=== PATIENT | female | born 1940 | race Caucasian/White ===

== ENCOUNTER 2019-08-06 06:54 | Day surgery (SDC) | payer MEDICARE, OTHER ==
[~2019-08-06 06:54] MED LIST: ACETAMINOPHEN 1,000 MG/100 ML BTL IVPB ONE; CEFAZOLIN 2 Gram 2 GM/50 ML BAG IVPB ONE; FAMOTIDINE 20MG TABLET PO ONE; MECLIZINE 25 MG TABLET PO ONE; METOCLOPRAMIDE 10 MG TABLET PO ONE
[2019-08-06] MEDS ORDERED: BUPIVACAINE LIPOSOME/PF 133MG/10ML VIAL IV ONE (06:55)
[2019-08-06] MEDS ORDERED: MIDAZOLAM HCL 2MG/2ML VIAL IV ONE (06:55)
[2019-08-06] MEDS ORDERED: BUPIVACAINE 0.25% MPF 30ML VIAL IVP ONE (06:55)
[2019-08-06] MEDS ORDERED: PROPOFOL 10 MG/ML VIAL IV ONE (06:55)
[2019-08-06] MEDS ORDERED: LIDOCAINE 2% MDV (20MG/ML) 20ML VIAL IV ONE (06:55)
[2019-08-06] MEDS ORDERED: DEXAMETHASONE 4 MG/ML 1ML VIAL IVP ONE (06:55)
[2019-08-06] MEDS ORDERED: RINGERS SOLUTION,LACTATED 1,000 ML IV ONE ×2 (07:32→10:35)
[2019-08-06] MEDS ORDERED: BUPIVACAINE 0.5% W/EPI MPF 30 ML VIAL SQ ONE (10:09)
[2019-08-06] MEDS ORDERED: MORPHINE SULFATE 10MG/1ML **1ML VIAL IU ONE (10:10)
[2019-08-06] MEDS ORDERED: METHYLPREDNISOLONE 40MG/VIAL IU ONE (10:10)
--- NOTE | 2019-08-12 14:01 | Operative Note ---
DATE OF SURGERY: 08/06/2019 PREOPERATIVE DIAGNOSIS: Right shoulder impingement. POSTOPERATIVE DIAGNOSES: 1. Complex supine glenohumeral labral tear. 2. Small tear of the rotator cuff. 3. Profound external impingement of right shoulder. 4. Arthrosis right distal clavicle. OPERATION: 1. 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 2. Right shoulder open acromioplasty, CA ligament resection, subacromial bursectomy. 3. Right shoulder arthroscopy with intraarticular debridement. 4. Right shoulder distal clavicle resection. STAFF SURGEON: Octavio Kang MD ANESTHESIA: Block with sedation. PREPARATION: Chloraprep. INDIVIDUAL CONSIDERATIONS: None. PROCEDURE: The patient was taken to the operating room, placed supine on the operating room table. She had a successful induction of a block and then she was then placed in a semi-seated beach chair position, given sedation. Her right arm and shoulder area were prepped and draped in the usual fashion. The patient had posterior portal identified for arthroscopy. Skin was infiltrated with 0.5% Marcaine with epinephrine prior. An 18-gauge spinal needle was easily placed in the joint, and the joint was inflated with normal saline with a 60-mL syringe. A stab wound was made, and a blunt-tipped trocar for the scope was easily placed in the joint. The joint was inflated with normal saline. An anterior accessory portal was then made just inferior to the intact long head of the biceps tendon in a retrograde fashion with a Wissinger iraida, and the joint was irrigated out. The rotator cuff underneath had what appeared to be a contusion at the supraspinatus but it was not completely full thickness. There was fraying of the labrum superiorly I would say primarily between 9- and 12- o'clock. This was debrided out with a shaver. Again, the humeral joint was normal, subscap tendon was normal. No significant synovitis in the joint and no loose bodies inferior in the pouch. After irrigation, portals were closed with anton. The patient had an anterior approach to the subacromial space and distal clavicle. Skin was again infiltrated with 0.5% Marcaine with epinephrine prior. Sharp dissection carried down through skin and subcutaneous tissues. Small veins were coagulated with a Bovie. An anterior deltoid interval was developed. Care was taken not to split the deltoid more than about 4 cm distal to the anterior tip of the acromion to prevent injury to the axillary nerve. Once in the subacromial space, there was a huge anterior spur on the acromion and spurs at the AC joint. The deltoid was then taken subperiosteally off the anterior aspect of the acromion, over the top of the CA ligament, and off the anterior aspect of a highly degenerated distal clavicle. CA ligament was resected with a Bovie. Distal clavicle was resected taking under a centimeter because of her diminutive stature. The patient had a huge anterior spur at the acromion, and an anterior acromioplasty was performed taking a little over a centimeter. Most of this was actually spur and tapering towards posteromedially to include the spurs at the AC joint. The undersurface was smoothed with a rasp. A very thick bursa was debrided out. I had a good look at the rotator cuff. Where the spur had been rubbing, there was a small hole in the rotator cuff. I was able to fix this with interrupted 0 Vicryl suture because it was all tendon. There was a large area on the supraspinatus at the insertion which had been planed off, I would say about 20% of it, but otherwise intact. I did not have to repair it but clearly there was injuring by the spurts. I put the shoulder now through a full range of motion to ensure no further impingement. After irrigation, the deltoid was reattached to the remaining acromion with multiple #1 Vicryl going directly through the bony acromion. The periosteal cuff of the distal clavicle was closed with running #1 Vicryl. Anterior deltoid interval was closed with running 0 Vicryl. Subcu was closed with 2-0 plus Vicryl and skin was closed with anton. An 18-gauge spinal needle was placed into the subacromial space. This was injected with 15 mL of 0.5% Marcaine with epinephrine along with 10 mg of morphine and 40 mg of Depo-Medrol. A sterile bulky compressive dressing and sling were applied. The patient tolerated the procedure well. Needle and sponge counts were correct. Estimated blood loss was minimal. She was taken back to recovery in good condition. There were no complications. [facility]
== END 2019-08-06 11:38 | disposition home or self-care (01) ==
LOC: SUR 06:54
PROVIDERS: ATTEND Orthopaedic Surgery
DX: M75.101 Unspecified rotator cuff tear or rupture of right shoulder, not specified as traumatic (principal); S43.431A Superior glenoid labrum lesion of right shoulder, initial encounter; M19.011 Primary osteoarthritis, right shoulder; J44.9 Chronic obstructive pulmonary disease, unspecified; Z79.01 Long term (current) use of anticoagulants; E78.00 Pure hypercholesterolemia, unspecified; J45.909 Unspecified asthma, uncomplicated; K21.9 Gastro-esophageal reflux disease without esophagitis
CPT/HCPCS: 29822; 23412; 23415; 23125; 01630; 64415; 76942; J0690; C9290; J2270; J1030; J7120